=== PATIENT | male | born 1960 | race Caucasian/White ===

== ENCOUNTER 2016-09-11 15:17 | Inpatient (IN) | payer OTHER ==
[~2016-09-11] VITALS: Ht 177.8 cm; Wt 97.1 kg
[~2016-09-11 15:17] MED LIST: ACID CONTROL150 MG PO; DEPAKOTE ER500 MG PO; DEPAKOTE500 MG PO; DONNATAL1 TABLET PO; LEVOTHROID,S0.025 M1 PO; LEVOTHYROXINE75 MCG PO; LISINOPRIL40 MG PO; METFORMIN HCL500 MG PO; PRAVACHOL40 MG PO; PRINIVIL40 MG PO; SEROQUEL XR200 MG PO; SEROQUEL300 MG PO; TRILIPIX135 MG PO; ZOFRAN ODT4 MG PO; ZOLOFT100 MG PO; ZOLOFT25 MG PO
[2016-09-11 16:15] LABS: HEMATOCRIT 39.3 % (38.0-50.0); MCHC 33.6 G/DL (30.0-36.0); MCV 86.4 FL (86-99); MEAN PLAT.VOLUME 10.5 uM^3 (9.0-12.4); PLATELET COUNT 161 K/uL (156-360); RBC DIS.WIDTH-CV 12.8 % (11.8-14.6); RBC DIS.WIDTH-SD 40.2 % (39-53); RED BLOOD COUNT 4.55 M/uL (4.00-5.50); WHITE BLOOD COUNT 7.7 K/uL (4.1-10.2)
[2016-09-11 16:27] LABS: CHLORIDE 102 mEq/L (99-109); POTASSIUM 3.7 mEq/L (3.7-5.4); SODIUM 136 mEq/L (136-147)
[2016-09-11 16:30] LABS: ANION GAP 10 MEQ/L (2-14)
[2016-09-11 16:33] LABS: GFR ESTIMATE (CALCULATED) > 59 mL/min/
[2016-09-11 16:34] LABS: UREA NITROGEN (BUN) 7 mg/dL (9-23)
[2016-09-11 16:35] LABS: GLUCOSE 607 mg/dL (70-99)
[2016-09-11 16:37] LABS: CARBON DIOXIDE (BICARBONATE) 27.4 MEQ/L (20-31)
[2016-09-11 16:51] LABS: ADD MIUA? NO; BILIRUBIN NEGATIVE; BLOOD NEGATIVE; COLOR STRAW ((YELLOW)); GLUCOSE (STRIP) >=500; KETONES NEGATIVE; LEUKOCYTES NEGATIVE; NITRITE NEGATIVE; PROTEIN (STRIP) NEGATIVE; SPECIFIC GRAVITY 1.032 (1.000-1.030); UROBILINOGEN 0.2 MG/DL (0.2-1.0)
[2016-09-11 17:42] LABS: POINT-OF-CARE METER ID UU13113800
[2016-09-11 18:03] LABS: SERUM ETHYL ALCOHOL < 10 mg/dL
[2016-09-11 18:15] LABS: TROP-I INTERPRETATION NEGATIVE; TROPONIN-I < 0.01 ng/mL (0.0-0.30)
[2016-09-11 18:16] LABS: AMPHETAMINE NEGATIVE (500 ng/mL); BARBITURATES NEGATIVE (200 ng/mL); BENZODIAZEPINES NEGATIVE (150 ng/mL); COCAINE NEGATIVE (150 ng/mL); INTERNAL CONTROLS VALID? YES; METHADONE NEGATIVE (200 ng/mL); METHAMPHETAMINE NEGATIVE (500 ng/mL); OPIATES (MORPHINE) NEGATIVE (100 ng/mL); OXYCODONE NEGATIVE (100 ng/mL); PHENCYCLIDINE NEGATIVE (25 ng/mL); PROPOXYPHENE NEGATIVE (300 ng/mL); THC CANNABINOIDS NEGATIVE (50 ng/mL); TRICYCLIC ANTIDEPRESSANTS PRESUMPTIVE POSITIVE (300 ng/mL)
[2016-09-11 18:35] LABS: INFLUENZA A VIRAL ANTIGEN NEGATIVE; INFLUENZA B VIRAL ANTIGEN NEGATIVE
[2016-09-11 18:57] LABS: POINT-OF-CARE METER ID UU13113702
[2016-09-11 20:44] LABS: POINT-OF-CARE METER ID UU13113702
[2016-09-12 00:33] VITALS: BP 109/70
[2016-09-12 02:59] VITALS: BP 114/82
[2016-09-12 08:05] VITALS: BP 123/76
[2016-09-12 10:20] LABS: MCH 29.2 PG (29.0-34.0); MCHC 33.8 G/DL (30.0-36.0); MCV 86.6 FL (86-99); MEAN PLAT.VOLUME 10.1 uM^3 (9.0-12.4); PLATELET COUNT 146 K/uL (156-360); RBC DIS.WIDTH-CV 13.1 % (11.8-14.6); RBC DIS.WIDTH-SD 41.1 % (39-53); RED BLOOD COUNT 4.62 M/uL (4.00-5.50); WHITE BLOOD COUNT 5.8 K/uL (4.1-10.2)
[2016-09-12 10:53] LABS: ALKALINE PHOSPHATASE 41 IU/L (3-129); ANION GAP 5 MEQ/L (2-14); CHLORIDE 102 MEQ/L (99-109); GFR ESTIMATE (CALCULATED) > 59 mL/min/; GLUCOSE 297 mg/dL (70-99); SAMPLE HEMOLYSIS CHECK 0; SAMPLE ICTERIC CHECK 0; SAMPLE LIPEMIA CHECK 0; SODIUM 136 MEQ/L (136-147); TOTAL BILIRUBIN 0.5 MG/DL (0.0-1.0); UREA NITROGEN (BUN) 8 mg/dL (9-23)
[2016-09-12 11:02] VITALS: BP 147/98
[2016-09-12 12:19] LABS: Estimated Average Glucose 369 mg/dL (70-123); HEMOGLOBIN A1c (GLYCOHEMOGLOB) 14.5 % HGB (Below 5.7)
[2016-09-12 16:45] VITALS: BP 127/93
[2016-09-16 15:00] LABS: POINT-OF-CARE METER ID UU13113800
== END 2016-09-12 19:10 | disposition left against medical advice (07) | DRG 638 ==
LOC: EME 15:17 → 5WEST 22:23 → EDOF 22:23 → 5WEST 23:51
PROVIDERS: Hospitalist; Physician Assistant; Physician Assistant Medical
DX: E11.65 Type 2 diabetes mellitus with hyperglycemia (principal); E87.2 Acidosis; F05 Delirium due to known physiological condition; F31.30 Bipolar disorder, current episode depressed, mild or moderate severity, unspecified; Z91.128 Patient's intentional underdosing of medication regimen for other reason; E78.5 Hyperlipidemia, unspecified; G40.909 Epilepsy, unspecified, not intractable, without status epilepticus; E86.0 Dehydration; I10 Essential (primary) hypertension; K21.9 Gastro-esophageal reflux disease without esophagitis; J45.909 Unspecified asthma, uncomplicated; R32 Unspecified urinary incontinence; R35.0 Frequency of micturition; E78.00 Pure hypercholesterolemia, unspecified; R41.82 Altered mental status, unspecified; G47.9 Sleep disorder, unspecified; Z91.19 Patient's noncompliance with other medical treatment and regimen; Z88.0 Allergy status to penicillin; Z88.2 Allergy status to sulfonamides; Z56.0 Unemployment, unspecified
CPT/HCPCS: 70450; 71020; 80048; 80053; 81003; 82010; 82103 90; 82803; 82948; 83036; 83605; 84484; 85027; 87040; 87502; 87651 90; 93005; 99281; 99285; G0378; G0480; J1650; J1815; J3480; J7030; J7120

== ENCOUNTER 2016-09-20 17:55 | Emergency (ER) | payer OTHER ==
[~2016-09-20] VITALS: Ht 177.8 cm; Wt 93.3 kg
[2016-09-20 19:24] VITALS: BP 150/101
[2016-09-21] MEDS ORDERED: DEPAKOTE ER500 MG PO ×2 (12:03→12:06)
[2016-09-21] MEDS ORDERED: KLONOPIN0.5 M1 PO (12:03)
[2016-09-21] MEDS ORDERED: ZOLOFT100 MG PO ×2 (12:03→12:06)
== END 2016-09-20 19:25 | disposition home or self-care (01) ==
LOC: EME 17:55
DX: Z76.0 Encounter for issue of repeat prescription (principal)
CPT/HCPCS: 99281; 99283

== ENCOUNTER 2016-09-21 11:01 | Emergency (ER) | payer OTHER ==
[~2016-09-21] VITALS: Ht 177.8 cm; Wt 93.3 kg
[2016-09-21 11:03] VITALS: BP 135/111
[2016-09-21] MEDS ORDERED: KLONOPIN0.5 M1 PO (12:03)
[2016-09-21] MEDS ORDERED: ZOLOFT100 MG PO ×2 (12:03→12:06)
[2016-09-21] MEDS ORDERED: DEPAKOTE ER500 MG PO ×2 (12:03→12:06)
== END 2016-09-21 12:22 | disposition home or self-care (01) ==
LOC: EME 11:01
DX: F31.9 Bipolar disorder, unspecified (principal); Z76.0 Encounter for issue of repeat prescription
CPT/HCPCS: 90832; 99281; 99283

== ENCOUNTER 2017-01-10 14:15 | Inpatient (IN) | payer OTHER ==
[~2017-01-10] VITALS: Ht 180.3 cm; Wt 95.0 kg
[~2017-01-10 14:15] MED LIST changes: +KLONOPIN0.5 M1 PO
[2017-01-10 14:53] LABS: BASOPHIL COUNT 0.1 K/uL (0-0.1); EOSINOPHIL (%) 2.4 % (0-5); EOSINOPHIL COUNT 0.3 K/uL (0-0.3); HEMATOCRIT 41.4 % (38.0-50.0); IMMATURE GRANULOCYTE (%) 2.2 % (0.0-0.7); IMMATURE GRANULOCYTE COUNT 0.3 K/uL; INSTRUMENT ABS NEUTROPHIL CT 8.4 K/uL; MCH 28.9 PG (29.0-34.0); MCHC 33.3 G/DL (30.0-36.0); MCV 86.6 FL (86-99); MEAN PLAT.VOLUME 9.9 uM^3 (9.0-12.4); MONOCYTE (%) 8.2 % (3-12); NEUTROPHIL (%) 70.2 % (45-76); NEUTROPHIL COUNT 8.4 K/uL (1.8-6.4); PLATELET COUNT 199 K/uL (156-360); RBC DIS.WIDTH-CV 13.1 % (11.8-14.6); RBC DIS.WIDTH-SD 41.1 % (39-53); RED BLOOD COUNT 4.78 M/uL (4.00-5.50); WHITE BLOOD COUNT 11.9 K/uL (4.1-10.2)
[2017-01-10 15:01] LABS: CHLORIDE 106 mEq/L (99-109); POTASSIUM 4.5 mEq/L (3.7-5.4); SODIUM 138 mEq/L (136-147)
[2017-01-10 15:03] LABS: GLUCOSE 332 mg/dL (70-99)
[2017-01-10 15:04] LABS: ANION GAP 7 MEQ/L (2-14)
[2017-01-10 15:05] LABS: TOTAL BILIRUBIN 0.4 mg/dL (0.0-1.0)
[2017-01-10 15:07] LABS: GFR ESTIMATE (CALCULATED) > 59 mL/min/
[2017-01-10 15:08] LABS: ALKALINE PHOSPHATASE 47 IU/L (3-129)
[2017-01-10 15:09] LABS: UREA NITROGEN (BUN) 13 mg/dL (9-23)
[2017-01-10 15:10] LABS: SALICYLATE < 5.0 MG/DL (15-30)
[2017-01-10 15:13] LABS: TROP-I INTERPRETATION NEGATIVE; TROPONIN-I < 0.01 ng/mL (0.0-0.30)
[2017-01-10 15:38] LABS: ADD MIUA? NO; BILIRUBIN NEGATIVE; BLOOD NEGATIVE; COLOR YELLOW ((YELLOW)); GLUCOSE (STRIP) >=500; KETONES 5; LEUKOCYTES NEGATIVE; NITRITE NEGATIVE; PROTEIN (STRIP) 30; SPECIFIC GRAVITY 1.025 (1.000-1.030); UCUL ADDED? NO; UROBILINOGEN 0.2 MG/DL (0.2-1.0)
[2017-01-10 15:56] LABS: SAMPLE HEMOLYSIS CHECK 0; SAMPLE ICTERIC CHECK 0; SAMPLE LIPEMIA CHECK 0
[2017-01-10] MEDS ORDERED: PRAVACHOL40 MG PO (17:59)
[2017-01-10] MEDS ORDERED: DEPAKOTE ER500 MG PO (17:59)
[2017-01-10] MEDS ORDERED: CLONAZEPAM0.5 MG PO ×2 (17:59)
[2017-01-10] MEDS ORDERED: SERTRALINE HCL100 MG PO (17:59)
[2017-01-10] MEDS ORDERED: SEROQUEL XR400 MG PO (18:00)
[2017-01-10] MEDS ORDERED: SYNTHROID75 MCG PO (18:00)
[2017-01-10] MEDS ORDERED: BASAGLAR K100 UNIT/1 SC (18:00)
[2017-01-10] MEDS ORDERED: INVOKANA300 MG PO (18:00)
[2017-01-10] MEDS ORDERED: ZANTAC300 MG PO (18:00)
[2017-01-10] MEDS ORDERED: LISINOPRIL40 MG PO (18:00)
[2017-01-10 20:58] LABS: POINT-OF-CARE METER ID UU14100415
[2017-01-10 21:40] VITALS: BP 152/87
[2017-01-10 22:05] LABS: POINT-OF-CARE METER ID UU14188625
[2017-01-11] VITALS: BP 137/77
[2017-01-11 02:23] LABS: POINT-OF-CARE METER ID UU13113717
[2017-01-11 02:26] VITALS: BP 137/83
[2017-01-11 02:29] VITALS: BP 129/87; BP 160/81
[2017-01-11 08:49] LABS: HEMATOCRIT 39.2 % (38.0-50.0); MCH 28.7 PG (29.0-34.0); MCHC 32.9 G/DL (30.0-36.0); MCV 87.1 FL (86-99); MEAN PLAT.VOLUME 9.7 uM^3 (9.0-12.4); PLATELET COUNT 179 K/uL (156-360); RBC DIS.WIDTH-CV 13.1 % (11.8-14.6); RBC DIS.WIDTH-SD 41.5 % (39-53); WHITE BLOOD COUNT 8.2 K/uL (4.1-10.2)
[2017-01-11 09:11] LABS: ALKALINE PHOSPHATASE 34 IU/L (3-129); ANION GAP 2 MEQ/L (2-14); CHLORIDE 110 MEQ/L (99-109); GFR ESTIMATE (CALCULATED) > 59 mL/min/; POTASSIUM 4.1 MEQ/L (3.7-5.4); SAMPLE HEMOLYSIS CHECK 0; SAMPLE ICTERIC CHECK 0; SAMPLE LIPEMIA CHECK 0; SODIUM 144 MEQ/L (136-147); TOTAL BILIRUBIN 0.4 MG/DL (0.0-1.0); UREA NITROGEN (BUN) 8 mg/dL (9-23)
[2017-01-11 09:56] LABS: GLUCOSE 138 mg/dL (70-99)
[2017-01-11 11:10] VITALS: BP 128/81
[2017-01-11 12:12] LABS: POINT-OF-CARE METER ID UU13113717
[2017-01-11 14:37] LABS: AMPHETAMINES QUANT VALUE 0 NG/ML; BARBITUATES QUANT VALUE 0 NG/ML; BENZODIAZEPINES QUANT VALUE 0 NG/ML; BENZODIAZEPINES, URINE SCREEN Negative (200 ng/mL); MARIJUANA QUANT VALUE 0 NG/ML; OPIATES QUANTITATIVE VALUE 0 NG/ML; PHENCYCLIDINE QUANT VALUE 0 NG/ML
[2017-01-11 15:10] VITALS: BP 120/80
[2017-01-11 16:10] LABS: POINT-OF-CARE METER ID UU13113717
[2017-01-11 20:00] VITALS: BP 169/84
[2017-01-12] VITALS (12 sets, daily range): BP systolic 109–176; BP diastolic 65–103
[2017-01-12 06:18] LABS: HEMATOCRIT 40.4 % (38.0-50.0); MCH 29.8 PG (29.0-34.0); MCHC 34.2 G/DL (30.0-36.0); MCV 87.3 FL (86-99); MEAN PLAT.VOLUME 9.8 uM^3 (9.0-12.4); PLATELET COUNT 183 K/uL (156-360); RBC DIS.WIDTH-CV 13.2 % (11.8-14.6); RBC DIS.WIDTH-SD 41.3 % (39-53); RED BLOOD COUNT 4.63 M/uL (4.00-5.50); WHITE BLOOD COUNT 10.6 K/uL (4.1-10.2)
[2017-01-12 07:06] LABS: ANION GAP 5 MEQ/L (2-14); CHLORIDE 106 MEQ/L (99-109); GFR ESTIMATE (CALCULATED) > 59 mL/min/; GLUCOSE 112 mg/dL (70-99); POTASSIUM 3.6 MEQ/L (3.7-5.4); SAMPLE HEMOLYSIS CHECK 0; SAMPLE ICTERIC CHECK 0; SAMPLE LIPEMIA CHECK 0; SODIUM 143 MEQ/L (136-147); UREA NITROGEN (BUN) 8 mg/dL (9-23)
[2017-01-12 21:19] LABS: POINT-OF-CARE METER ID UU14174225
[2017-01-13 02:00] VITALS: BP 164/7; BP 164/70
[2017-01-13 07:10] LABS: HEMATOCRIT 42.2 % (38.0-50.0); MCH 28.5 PG (29.0-34.0); MCHC 32.9 G/DL (30.0-36.0); MCV 86.7 FL (86-99); RBC DIS.WIDTH-CV 13.1 % (11.8-14.6); RBC DIS.WIDTH-SD 40.8 % (39-53); RED BLOOD COUNT 4.87 M/uL (4.00-5.50); WHITE BLOOD COUNT 8.6 K/uL (4.1-10.2)
[2017-01-13 07:31] LABS: ANION GAP 9 MEQ/L (2-14); CHLORIDE 109 MEQ/L (99-109); POTASSIUM 3.8 MEQ/L (3.7-5.4); SAMPLE HEMOLYSIS CHECK 0; SAMPLE ICTERIC CHECK 0; SAMPLE LIPEMIA CHECK 0; SODIUM 144 MEQ/L (136-147)
[2017-01-13 07:37] LABS: GFR ESTIMATE (CALCULATED) > 59 mL/min/; UREA NITROGEN (BUN) 8 mg/dL (9-23)
[2017-01-13 07:38] LABS: GLUCOSE 64 mg/dL (70-99)
[2017-01-13 07:56] LABS: PLAT.SUFFICIENCY DECREASED
[2017-01-13 08:00] LABS: PLATELET COUNT UNABLE TO REPORT K/uL (156-360)
[2017-01-13 20:50] LABS: POINT-OF-CARE METER ID UU14174225
[2017-01-13 21:05] VITALS: BP 179/78
[2017-01-13 23:55] VITALS: BP 172/102
[2017-01-14 00:14] VITALS: BP 172/115; BP 173/104
[2017-01-14 08:00] VITALS: BP 136/93; BP 137/86; BP 144/94
[2017-01-14 15:05] VITALS: BP 156/92
[2017-01-14 16:31] LABS: POINT-OF-CARE METER ID UU13113717
[2017-01-14] MEDS ORDERED: TYLENOL EXTRA500 MG PO (19:01)
== END 2017-01-14 17:51 | DRG 885 ==
LOC: EME 14:15 → 5SOUTH 18:29 → EDOF 18:29 → ENRESERV 18:30 → 5SOUTH 20:56
PROVIDERS: Emergency Medicine; Internal Medicine; Physician Assistant Medical
DX: F31.9 Bipolar disorder, unspecified (principal); F20.9 Schizophrenia, unspecified; E11.65 Type 2 diabetes mellitus with hyperglycemia; F22 Delusional disorders; G40.909 Epilepsy, unspecified, not intractable, without status epilepticus; Z91.14 Patient's other noncompliance with medication regimen; I10 Essential (primary) hypertension; E78.5 Hyperlipidemia, unspecified; F17.200 Nicotine dependence, unspecified, uncomplicated; J45.909 Unspecified asthma, uncomplicated; K21.9 Gastro-esophageal reflux disease without esophagitis; Z79.4 Long term (current) use of insulin; Z79.899 Other long term (current) drug therapy; Z91.19 Patient's noncompliance with other medical treatment and regimen; Z68.29 Body mass index [BMI] 29.0-29.9, adult
CPT/HCPCS: 70450; 71010; 80048; 80053; 80164; 80306 90; 81003; 82948; 83605; 84443; 84484; 85025; 85027; 99281; 99285; G0480; J1644; J1815; J7030

== ENCOUNTER 2017-01-14 17:28 | Inpatient (IN) | payer OTHER ==
[~2017-01-14] VITALS: Ht 177.8 cm; Wt 94.8 kg
[~2017-01-14 17:28] MED LIST changes: +BASAGLAR K100 UNIT/1 SC; +CLONAZEPAM0.5 MG PO; +INVOKANA300 MG PO; +SEROQUEL XR400 MG PO; +SERTRALINE HCL100 MG PO; +SYNTHROID75 MCG PO; +ZANTAC300 MG PO
[2017-01-14 18:11] VITALS: BP 179/93
[2017-01-14] MEDS ORDERED: TYLENOL EXTRA500 MG PO (19:01)
[2017-01-14 20:59] VITALS: BP 168/97
[2017-01-15 06:27] LABS: POINT-OF-CARE METER ID UU14188576; POINT-OF-CARE USER ID ENVTLS63
[2017-01-15 08:34] VITALS: BP 95/57
[2017-01-15 11:49] LABS: POINT-OF-CARE METER ID UU14188576; POINT-OF-CARE USER ID BHSLRM
[2017-01-15 15:46] VITALS: BP 125/73
[2017-01-15 16:41] LABS: POINT-OF-CARE METER ID UU14188576; POINT-OF-CARE USER ID BHSMEW
[2017-01-15 20:29] LABS: POINT-OF-CARE METER ID UU14188576; POINT-OF-CARE USER ID ENVTLS63
[2017-01-16 06:16] LABS: POINT-OF-CARE METER ID UU14188576; POINT-OF-CARE USER ID ENVTLS63
[2017-01-16 08:14] VITALS: BP 93/54
[2017-01-16 10:42] LABS: POINT-OF-CARE METER ID UU14188576
[2017-01-16 15:30] VITALS: BP 118/90
[2017-01-16 16:53] LABS: POINT-OF-CARE METER ID UU14188576
[2017-01-16 21:42] LABS: POINT-OF-CARE METER ID UU14188576; POINT-OF-CARE USER ID BHSSMG
[2017-01-17 06:28] LABS: POINT-OF-CARE METER ID UU14188576
[2017-01-17 07:52] VITALS: BP 106/73
[2017-01-17 12:48] LABS: POINT-OF-CARE METER ID UU14188576; POINT-OF-CARE USER ID BHSTSA
[2017-01-17 16:22] VITALS: BP 121/74
[2017-01-17 16:48] LABS: POINT-OF-CARE METER ID UU14188576; POINT-OF-CARE USER ID BHSMEW
[2017-01-17 20:18] LABS: POINT-OF-CARE METER ID UU14188576; POINT-OF-CARE USER ID BHSMEW
[2017-01-18 06:33] LABS: POINT-OF-CARE METER ID UU14188576
[2017-01-18 09:04] VITALS: BP 103/63
[2017-01-18 11:37] LABS: POINT-OF-CARE METER ID UU14188576; POINT-OF-CARE USER ID BHSTSA
[2017-01-18 16:40] LABS: POINT-OF-CARE METER ID UU14188576; POINT-OF-CARE USER ID BHSMEW
[2017-01-18 16:51] VITALS: BP 121/58
[2017-01-18 20:47] LABS: POINT-OF-CARE METER ID UU14188576; POINT-OF-CARE USER ID BHSMEW
[2017-01-19 06:18] LABS: POINT-OF-CARE METER ID UU14188576; POINT-OF-CARE USER ID ENVTLS63
[2017-01-19 07:53] VITALS: BP 98/57
[2017-01-19 10:01] LABS: BASOPHIL COUNT 0.1 K/uL (0-0.1); EOSINOPHIL (%) 3.3 % (0-5); EOSINOPHIL COUNT 0.3 K/uL (0-0.3); HEMATOCRIT 43.4 % (38.0-50.0); IMMATURE GRANULOCYTE (%) 2.2 % (0.0-0.7); IMMATURE GRANULOCYTE COUNT 0.2 K/uL; INSTRUMENT ABS NEUTROPHIL CT 4.7 K/uL; LYMPHOCYTE COUNT 2.4 K/uL (1.0-2.8); MCH 30.3 PG (29.0-34.0); MCHC 34.6 G/DL (30.0-36.0); MCV 87.7 FL (86-99); MEAN PLAT.VOLUME 10.3 uM^3 (9.0-12.4); MONOCYTE COUNT 1.6 K/uL (0-0.8); NEUTROPHIL (%) 50.9 % (45-76); NEUTROPHIL COUNT 4.7 K/uL (1.8-6.4); RBC DIS.WIDTH-CV 13.4 % (11.8-14.6); RBC DIS.WIDTH-SD 42.7 % (39-53); RED BLOOD COUNT 4.95 M/uL (4.00-5.50); WHITE BLOOD COUNT 9.3 K/uL (4.1-10.2)
[2017-01-19 11:05] LABS: PLATELET COUNT 182 K/uL (156-360)
[2017-01-19 11:44] LABS: POINT-OF-CARE METER ID UU14188576; POINT-OF-CARE USER ID BHSLRM
[2017-01-19] MEDS ORDERED: DIVALPROEX SOD500 M1 PO (12:18)
== END 2017-01-19 13:32 | disposition home health service (06) | DRG 885 ==
LOC: 1WEST 17:28 → ENRESERV 17:29 → 1WEST 18:10
PROVIDERS: Psychiatry & Neurology Psychiatry
DX: F31.62 Bipolar disorder, current episode mixed, moderate (principal); G31.84 Mild cognitive impairment of uncertain or unknown etiology; E11.9 Type 2 diabetes mellitus without complications; I10 Essential (primary) hypertension; E78.5 Hyperlipidemia, unspecified; Z91.19 Patient's noncompliance with other medical treatment and regimen; Z79.4 Long term (current) use of insulin; Z88.0 Allergy status to penicillin; Z88.2 Allergy status to sulfonamides; Z88.5 Allergy status to narcotic agent
CPT/HCPCS: 80164; 82607; 82746; 82948; 85025; 97150 GO; 97165 GO; J1815

== ENCOUNTER 2017-01-27 13:53 | Inpatient (IN) | payer OTHER ==
[~2017-01-27] VITALS: Ht 177.8 cm; Wt 93.9 kg
[~2017-01-27 13:53] MED LIST changes: +DIVALPROEX SOD500 M1 PO; +TYLENOL EXTRA500 MG PO
[2017-01-27 14:19] LABS: POINT-OF-CARE METER ID UU14100415
[2017-01-27 14:36] LABS: BASOPHIL COUNT 0.1 K/uL (0-0.1); EOSINOPHIL (%) 1.9 % (0-5); EOSINOPHIL COUNT 0.3 K/uL (0-0.3); HEMATOCRIT 43.1 % (38.0-50.0); IMMATURE GRANULOCYTE (%) 0.7 % (0.0-0.7); IMMATURE GRANULOCYTE COUNT 0.1 K/uL; INSTRUMENT ABS NEUTROPHIL CT 10.3 K/uL; LYMPHOCYTE COUNT 1.9 K/uL (1.0-2.8); MCH 29.1 PG (29.0-34.0); MCHC 33.4 G/DL (30.0-36.0); MCV 87.1 FL (86-99); MEAN PLAT.VOLUME 10.2 uM^3 (9.0-12.4); MONOCYTE (%) 5.2 % (3-12); MONOCYTE COUNT 0.7 K/uL (0-0.8); NEUTROPHIL (%) 77.5 % (45-76); NEUTROPHIL COUNT 10.3 K/uL (1.8-6.4); PLATELET COUNT 139 K/uL (156-360); RBC DIS.WIDTH-CV 13.3 % (11.8-14.6); RBC DIS.WIDTH-SD 42.5 % (39-53); RED BLOOD COUNT 4.95 M/uL (4.00-5.50); WHITE BLOOD COUNT 13.4 K/uL (4.1-10.2)
[2017-01-27 14:41] LABS: INTER. NORMALIZED RATIO 1.1; PROTHROMBIN TIME 11.8 SEC (10.2-12.9)
[2017-01-27 14:47] LABS: CHLORIDE 105 mEq/L (99-109); POTASSIUM 4.6 mEq/L (3.7-5.4); SODIUM 141 mEq/L (136-147)
[2017-01-27 14:49] LABS: GLUCOSE 130 mg/dL (70-99)
[2017-01-27 14:50] LABS: ANION GAP 11 MEQ/L (2-14)
[2017-01-27 14:51] LABS: TOTAL BILIRUBIN 0.6 mg/dL (0.0-1.0)
[2017-01-27 14:52] LABS: SERUM ETHYL ALCOHOL < 10 mg/dL
[2017-01-27 14:53] LABS: GFR ESTIMATE (CALCULATED) > 59 mL/min/
[2017-01-27 14:54] LABS: ALKALINE PHOSPHATASE 48 IU/L (3-129)
[2017-01-27 14:55] LABS: UREA NITROGEN (BUN) 21 mg/dL (9-23)
[2017-01-27 14:56] LABS: SALICYLATE < 5.0 MG/DL (15-30)
[2017-01-27 14:58] LABS: LIPASE 33 U/L (1.0-51.0)
[2017-01-27 15:03] LABS: TROP-I INTERPRETATION NEGATIVE; TROPONIN-I < 0.01 ng/mL (0.0-0.30)
[2017-01-27 15:59] LABS: ADD MIUA? YES; BILIRUBIN NEGATIVE; BLOOD NEGATIVE; COLOR YELLOW ((YELLOW)); GLUCOSE (STRIP) >=500; KETONES NEGATIVE; LEUKOCYTES NEGATIVE; NITRITE NEGATIVE; PROTEIN (STRIP) NEGATIVE; SPECIFIC GRAVITY 1.024 (1.000-1.030); UROBILINOGEN 0.2 MG/DL (0.2-1.0)
[2017-01-27 16:10] LABS: BACTERIA NONE SEEN /HPF; EPITHELIAL CELLS NONE SEEN /HPF; MUCUS NONE SEEN /LPF; RED BLOOD CELLS 0-5 /HPF (0-5); UCUL ADDED? NO; WHITE BLOOD CELLS 0-5 /HPF (0-5)
[2017-01-27 16:25] LABS: AMPHETAMINE NEGATIVE (500 ng/mL); BARBITURATES NEGATIVE (200 ng/mL); BENZODIAZEPINES NEGATIVE (150 ng/mL); COCAINE NEGATIVE (150 ng/mL); INTERNAL CONTROLS VALID? YES; METHADONE NEGATIVE (200 ng/mL); METHAMPHETAMINE NEGATIVE (500 ng/mL); OPIATES (MORPHINE) NEGATIVE (100 ng/mL); OXYCODONE NEGATIVE (100 ng/mL); PHENCYCLIDINE NEGATIVE (25 ng/mL); PROPOXYPHENE NEGATIVE (300 ng/mL); THC CANNABINOIDS NEGATIVE (50 ng/mL); TRICYCLIC ANTIDEPRESSANTS PRESUMPTIVE POSITIVE (300 ng/mL)
[2017-01-27 20:06] VITALS: BP 115/78
[2017-01-28] VITALS (7 sets, daily range): BP systolic 101–117; BP diastolic 63–78
[2017-01-28] MEDS ORDERED: CLONAZEPAM0.5 MG PO (04:27)
[2017-01-28] MEDS ORDERED: CLONAZEPAM1 MG PO (04:27)
[2017-01-28] MEDS ORDERED: SERTRALINE HCL100 MG PO (04:28)
[2017-01-28] MEDS ORDERED: INVOKANA300 MG PO (04:29)
[2017-01-28] MEDS ORDERED: QUETIAPINE FUM400 M1 PO (04:30)
[2017-01-28] MEDS ORDERED: DEPAKOTE ER500 MG PO (04:32)
[2017-01-28] MEDS ORDERED: PRAVACHOL40 MG PO (04:33)
[2017-01-28] MEDS ORDERED: BASAGLAR K100 UNIT/1 SC (04:35)
[2017-01-28 06:11] LABS: HEMATOCRIT 42.8 % (38.0-50.0); MCH 28.9 PG (29.0-34.0); MCHC 32.5 G/DL (30.0-36.0); MEAN PLAT.VOLUME 10.6 uM^3 (9.0-12.4); PLATELET COUNT 137 K/uL (156-360); RBC DIS.WIDTH-CV 13.5 % (11.8-14.6); RBC DIS.WIDTH-SD 44.2 % (39-53); RED BLOOD COUNT 4.81 M/uL (4.00-5.50); WHITE BLOOD COUNT 9.9 K/uL (4.1-10.2)
[2017-01-28 06:50] LABS: ANION GAP 7 MEQ/L (2-14); CHLORIDE 108 MEQ/L (99-109); GFR ESTIMATE (CALCULATED) > 59 mL/min/; POTASSIUM 4.2 MEQ/L (3.7-5.4); SAMPLE HEMOLYSIS CHECK 0; SAMPLE ICTERIC CHECK 0; SAMPLE LIPEMIA CHECK 0; SODIUM 144 MEQ/L (136-147); UREA NITROGEN (BUN) 16 mg/dL (9-23)
[2017-01-28 06:53] LABS: GLUCOSE 72 mg/dL (70-99)
[2017-01-29 04:27] VITALS: BP 113/72
[2017-01-29 04:50] LABS: HEMATOCRIT 38.3 % (38.0-50.0); MCH 29.3 PG (29.0-34.0); MCHC 33.2 G/DL (30.0-36.0); MCV 88.2 FL (86-99); MEAN PLAT.VOLUME 10.2 uM^3 (9.0-12.4); PLATELET COUNT 121 K/uL (156-360); RBC DIS.WIDTH-CV 13.4 % (11.8-14.6); RBC DIS.WIDTH-SD 43.6 % (39-53); RED BLOOD COUNT 4.34 M/uL (4.00-5.50); WHITE BLOOD COUNT 7.4 K/uL (4.1-10.2)
[2017-01-29 05:10] LABS: CHLORIDE 108 mEq/L (99-109); POTASSIUM 3.7 mEq/L (3.7-5.4); SODIUM 142 mEq/L (136-147)
[2017-01-29 05:13] LABS: ANION GAP 7 MEQ/L (2-14)
[2017-01-29 05:15] LABS: GFR ESTIMATE (CALCULATED) > 59 mL/min/; GLUCOSE 119 mg/dL (70-99)
[2017-01-29 05:16] LABS: UREA NITROGEN (BUN) 15 mg/dL (9-23)
[2017-01-29 08:40] VITALS: BP 119/80
[2017-01-29 12:43] VITALS: BP 129/84
[2017-01-29 17:36] VITALS: BP 134/65
[2017-01-29 20:10] VITALS: BP 170/84
[2017-01-30 00:08] VITALS: BP 139/97
[2017-01-30 04:19] VITALS: BP 132/82
[2017-01-30 07:46] VITALS: BP 141/91
[2017-01-30] MEDS ORDERED: NICOTINE PATCH1 EAC1 TD (10:35)
[2017-01-30] MEDS ORDERED: DIVALPROEX SOD500 M1 PO (10:36)
[2017-01-30] MEDS ORDERED: LEVETIRACETAM500 MG PO (10:36)
[2017-01-30 12:14] VITALS: BP 168/94
[2017-01-30 15:43] VITALS: BP 153/89
== END 2017-01-30 15:54 | disposition home health service (06) | DRG 918 ==
LOC: EME 13:53 → EDOF 17:53 → 4EAST 17:53 → ENRESERV 17:54 → 4EAST 19:33
PROVIDERS: Emergency Medicine; Hospitalist; Physician Assistant; Psychiatry & Neurology Psychiatry
DX: T42.6X1A Poisoning by other antiepileptic and sedative-hypnotic drugs, accidental (unintentional), initial encounter (principal); R41.82 Altered mental status, unspecified; I95.9 Hypotension, unspecified; G40.919 Epilepsy, unspecified, intractable, without status epilepticus; F17.210 Nicotine dependence, cigarettes, uncomplicated; F31.76 Bipolar disorder, in full remission, most recent episode depressed; E11.9 Type 2 diabetes mellitus without complications; E78.5 Hyperlipidemia, unspecified; I10 Essential (primary) hypertension; K21.9 Gastro-esophageal reflux disease without esophagitis; Z79.899 Other long term (current) drug therapy; E87.2 Acidosis
CPT/HCPCS: 70450; 71010; 80048; 80053; 80164; 80185; 81003; 82140; 82948; 83605; 83690; 84484; 85025; 85027; 85610; 85730; 87040; 93005; 99281; 99285; G0480; J1650; J1955; J1956; J2310; J3370; J7030

== ENCOUNTER 2017-08-12 21:14 | Inpatient (IN) | payer OTHER ==
[~2017-08-12] VITALS: Ht 180.3 cm; Wt 98.1 kg
[~2017-08-12 21:14] MED LIST changes: +CLONAZEPAM1 MG PO; +LEVETIRACETAM500 MG PO; +NICOTINE PATCH1 EAC1 TD; +QUETIAPINE FUM400 M1 PO
[2017-08-12 22:00] LABS: BASOPHIL (%) 0.8 % (0-1); BASOPHIL COUNT 0.1 K/uL (0-0.1); EOSINOPHIL COUNT 0.3 K/uL (0-0.3); HEMATOCRIT 42.5 % (38.0-50.0); HEMOGLOBIN 15.1 G/DL (12.5-16.6); IMMATURE GRANULOCYTE (%) 0.9 % (0.0-0.7); LYMPHOCYTE (%) 21.4 % (15-42); LYMPHOCYTE COUNT 2.4 K/uL (1.0-2.8); MCHC 35.5 G/DL (30.0-36.0); MCV 81.6 FL (86-99); MONOCYTE (%) 10.8 % (3-12); MONOCYTE COUNT 1.2 K/uL (0-0.8); NEUTROPHIL (%) 63.1 % (45-76); PLATELET COUNT 243 K/uL (156-360); RBC DIS.WIDTH-SD 37.9 % (39-53); RED BLOOD COUNT 5.21 M/uL (4.00-5.50)
[2017-08-12 22:09] LABS: ALBUMIN 3.8 g/dL (3.2-4.8); CHLORIDE 105 mEq/L (99-109); POTASSIUM 3.7 mEq/L (3.7-5.4); SODIUM 137 mEq/L (136-147)
[2017-08-12 22:12] LABS: GLUCOSE 339 mg/dL (70-99); TOTAL PROTEIN 7.4 g/dL (6.4-8.3)
[2017-08-12 22:13] LABS: TOTAL BILIRUBIN 0.5 mg/dL (0.0-1.0)
[2017-08-12 22:15] LABS: ALKALINE PHOSPHATASE 69 IU/L (3-129); GFR ESTIMATE (CALCULATED) > 59 mL/min/ (58.99-99999)
[2017-08-12 22:16] LABS: UREA NITROGEN (BUN) 13 mg/dL (9-23)
[2017-08-12 22:17] LABS: AST (GOT) 15 IU/L (2-34)
[2017-08-12 22:18] LABS: ALT (GPT) 12 IU/L (3-49)
[2017-08-12 22:19] LABS: LIPASE 56 U/L (1.0-51.0)
[2017-08-12 22:21] LABS: TROP-I INTERPRETATION NEGATIVE; TROPONIN-I < 0.01 ng/mL (0.0-0.30)
[2017-08-13 00:51] LABS: AMPHETAMINE NEGATIVE (500 ng/mL); BARBITURATES NEGATIVE (200 ng/mL); BENZODIAZEPINES NEGATIVE (150 ng/mL); BUPRENORPHINE NEGATIVE (10 ng/mL); COCAINE NEGATIVE (150 ng/mL); METHADONE NEGATIVE (200 ng/mL); METHAMPHETAMINE NEGATIVE (500 ng/mL); OPIATES (MORPHINE) NEGATIVE (100 ng/mL); OXYCODONE NEGATIVE (100 ng/mL); PHENCYCLIDINE NEGATIVE (25 ng/mL); PROPOXYPHENE NEGATIVE (300 ng/mL); THC CANNABINOIDS NEGATIVE (50 ng/mL); TRICYCLIC ANTIDEPRESSANTS NEGATIVE (300 ng/mL)
[2017-08-13 01:09] LABS: SERUM ETHYL ALCOHOL < 10 mg/dL
[2017-08-13 01:38] LABS: VALPROIC ACID (DEPAKOTE) < 10.0 MCG/ML (50-100)
[2017-08-13 04:22] VITALS: BP 175/101
[2017-08-13 06:15] VITALS: BP 156/89
[2017-08-13 08:04] VITALS: BP 159/89
[2017-08-13 15:53] VITALS: BP 140/75
[2017-08-14 07:55] VITALS: BP 117/67
[2017-08-14 15:41] VITALS: BP 141/79
[2017-08-15 07:55] VITALS: BP 114/65
[2017-08-15 15:33] VITALS: BP 123/70
[2017-08-16 07:41] VITALS: BP 117/72
[2017-08-16 15:31] VITALS: BP 129/82
[2017-08-17 08:10] VITALS: BP 108/63
[2017-08-17 16:18] VITALS: BP 125/77
[2017-08-18 07:23] VITALS: BP 121/73
[2017-08-18 15:12] VITALS: BP 145/87
[2017-08-19 07:59] VITALS: BP 153/86
[2017-08-20 07:58] VITALS: BP 117/75
[2017-08-20] MEDS ORDERED: SERTRALINE HCL100 MG PO (09:56)
[2017-08-20] MEDS ORDERED: QUETIAPINE FUM400 M1 PO (09:56)
[2017-08-20] MEDS ORDERED: PRAVACHOL40 MG PO (09:56)
[2017-08-20] MEDS ORDERED: CLONAZEPAM1 MG PO (09:56)
[2017-08-20] MEDS ORDERED: BASAGLAR K100 UNIT/1 SC (09:56)
[2017-08-20] MEDS ORDERED: LEVETIRACETAM500 MG PO (09:56)
[2017-08-20] MEDS ORDERED: DIVALPROEX SOD500 M1 PO (09:56)
[2017-08-20] MEDS ORDERED: HYDROXYZINE PAM25 MG PO (09:56)
[2017-08-20] MEDS ORDERED: NICOTINE PATCH1 EAC1 TD (09:56)
[2017-08-20] MEDS ORDERED: QUETIAPINE FUM100 MG PO (09:56)
== END 2017-08-20 12:24 | disposition home or self-care (01) | DRG 885 ==
LOC: EME 21:14 → 1WEST 08-13 01:55 → EDOF 08-13 01:55 → ENRESERV 08-13 03:26 → 1WEST 08-13 04:07
PROVIDERS: Emergency Medicine; Psychiatry & Neurology Psychiatry
DX: F25.0 Schizoaffective disorder, bipolar type (principal); G40.909 Epilepsy, unspecified, not intractable, without status epilepticus; E11.65 Type 2 diabetes mellitus with hyperglycemia; I10 Essential (primary) hypertension; F41.9 Anxiety disorder, unspecified; E78.5 Hyperlipidemia, unspecified; K21.9 Gastro-esophageal reflux disease without esophagitis; J45.909 Unspecified asthma, uncomplicated; Z91.19 Patient's noncompliance with other medical treatment and regimen; Z86.73 Personal history of transient ischemic attack (TIA), and cerebral infarction without residual deficits; Z87.891 Personal history of nicotine dependence
CPT/HCPCS: 71045; 80053; 80164; 82948; 83036; 83690; 84484; 85025; 90837; 93005; 97150 GO; 97166 GO; 99281; 99285; G0480; J1815; J2405; J7030

== ENCOUNTER 2017-10-04 19:10 | Emergency (ER) | payer OTHER ==
[~2017-10-04] VITALS: Ht 167.6 cm; Wt 103.0 kg
[~2017-10-04 19:10] MED LIST changes: +HYDROXYZINE PAM25 MG PO; +QUETIAPINE FUM100 MG PO
[2017-10-04 19:57] LABS: HEMATOCRIT 40.8 % (38.0-50.0); HEMOGLOBIN 14.4 G/DL (12.5-16.6); MCH 28.9 PG (29.0-34.0); MCHC 35.3 G/DL (30.0-36.0); MCV 81.9 FL (86-99); PLATELET COUNT 220 K/uL (156-360); RBC DIS.WIDTH-CV 13.5 % (11.8-14.6); RED BLOOD COUNT 4.98 M/uL (4.00-5.50); WHITE BLOOD COUNT 7.9 K/uL (4.1-10.2)
[2017-10-04 20:21] LABS: CHLORIDE 104 MEQ/L (99-109); CREATININE 0.7 MG/DL (0.6-1.3); GFR ESTIMATE (CALCULATED) > 59 mL/min/ (58.99-99999); GLUCOSE 118 mg/dL (70-99); SODIUM 141 MEQ/L (136-147); UREA NITROGEN (BUN) 6 mg/dL (9-23)
[2017-10-04 20:24] LABS: TROP-I INTERPRETATION NEGATIVE; TROPONIN-I < 0.01 ng/mL (0.0-0.30)
[2017-10-05 00:16] VITALS: BP 163/96
== END 2017-10-05 00:27 | disposition home or self-care (01) ==
LOC: EME 19:10
PROVIDERS: Emergency Medicine
DX: R07.9 Chest pain, unspecified (principal); S09.90XA Unspecified injury of head, initial encounter; M94.0 Chondrocostal junction syndrome [Tietze]; E86.0 Dehydration; W01.0XXA Fall on same level from slipping, tripping and stumbling without subsequent striking against object, initial encounter; E78.5 Hyperlipidemia, unspecified; I10 Essential (primary) hypertension; J45.909 Unspecified asthma, uncomplicated; F32.9 Major depressive disorder, single episode, unspecified; K21.9 Gastro-esophageal reflux disease without esophagitis; F41.9 Anxiety disorder, unspecified; Z86.73 Personal history of transient ischemic attack (TIA), and cerebral infarction without residual deficits; Z88.5 Allergy status to narcotic agent; Z88.2 Allergy status to sulfonamides; Z88.0 Allergy status to penicillin; Z87.891 Personal history of nicotine dependence
CPT/HCPCS: 70450; 71046; 80048; 84484; 85027; 93005; 99281; 99284; J7030

== ENCOUNTER 2017-11-08 01:51 | Emergency (ER) | payer OTHER ==
[~2017-11-08] VITALS: Ht 180.3 cm; Wt 97.7 kg
[2017-11-08 02:33] LABS: BASOPHIL (%) 0.7 % (0-1); BASOPHIL COUNT 0.1 K/uL (0-0.1); EOSINOPHIL COUNT 0.8 K/uL (0-0.3); HEMATOCRIT 43.4 % (38.0-50.0); HEMOGLOBIN 15.1 G/DL (12.5-16.6); LYMPHOCYTE (%) 15.5 % (15-42); LYMPHOCYTE COUNT 2.2 K/uL (1.0-2.8); MCHC 34.8 G/DL (30.0-36.0); MCV 83.5 FL (86-99); MONOCYTE COUNT 1.5 K/uL (0-0.8); NEUTROPHIL (%) 65.8 % (45-76); NEUTROPHIL COUNT 9.1 K/uL (1.8-6.4); PLATELET COUNT 200 K/uL (156-360); RBC DIS.WIDTH-CV 13.9 % (11.8-14.6); RBC DIS.WIDTH-SD 42.3 % (39-53); WHITE BLOOD COUNT 13.9 K/uL (4.1-10.2)
[2017-11-08 02:48] LABS: AMYLASE 44 IU/L (1-118); CHLORIDE 107 mEq/L (99-109); POTASSIUM 3.4 mEq/L (3.7-5.4); SODIUM 145 mEq/L (136-147)
[2017-11-08 02:50] LABS: GLUCOSE 160 mg/dL (70-99)
[2017-11-08 02:53] LABS: SERUM ETHYL ALCOHOL < 10 mg/dL
[2017-11-08 02:54] LABS: GFR ESTIMATE (CALCULATED) > 59 mL/min/ (58.99-99999)
[2017-11-08 02:55] LABS: UREA NITROGEN (BUN) 13 mg/dL (9-23)
[2017-11-08 02:57] LABS: LIPASE 21 U/L (1.0-51.0)
[2017-11-08 03:02] LABS: TROP-I INTERPRETATION NEGATIVE; TROPONIN-I < 0.01 ng/mL (0.0-0.30)
[2017-11-08 06:16] LABS: APPEARANCE CLEAR ((CLEAR)); BILIRUBIN NEGATIVE; BLOOD NEGATIVE; COLOR YELLOW ((YELLOW)); GLUCOSE (STRIP) NEGATIVE; KETONES NEGATIVE; LEUKOCYTES NEGATIVE; NITRITE NEGATIVE; PROTEIN (STRIP) NEGATIVE; SPECIFIC GRAVITY 1.041 (1.000-1.030); UCUL ADDED? NO; UROBILINOGEN 0.2 MG/DL (0.2-1.0)
[2017-11-08 06:27] LABS: AMPHETAMINE NEGATIVE (500 ng/mL); BARBITURATES NEGATIVE (200 ng/mL); BENZODIAZEPINES NEGATIVE (150 ng/mL); BUPRENORPHINE NEGATIVE (10 ng/mL); COCAINE NEGATIVE (150 ng/mL); METHADONE NEGATIVE (200 ng/mL); METHAMPHETAMINE NEGATIVE (500 ng/mL); OPIATES (MORPHINE) NEGATIVE (100 ng/mL); OXYCODONE NEGATIVE (100 ng/mL); PHENCYCLIDINE NEGATIVE (25 ng/mL); PROPOXYPHENE NEGATIVE (300 ng/mL); THC CANNABINOIDS NEGATIVE (50 ng/mL); TRICYCLIC ANTIDEPRESSANTS PRESUMPTIVE POSITIVE (300 ng/mL)
[2017-11-08 07:30] VITALS: BP 161/100
== END 2017-11-08 08:20 ==
LOC: EME 01:51
PROVIDERS: Emergency Medicine
DX: S06.9X1A Unspecified intracranial injury with loss of consciousness of 30 minutes or less, initial encounter (principal); S43.401A Unspecified sprain of right shoulder joint, initial encounter; W10.9XXA Fall (on) (from) unspecified stairs and steps, initial encounter; E86.0 Dehydration; I45.10 Unspecified right bundle-branch block; R94.31 Abnormal electrocardiogram [ECG] [EKG]; E11.9 Type 2 diabetes mellitus without complications; Z79.4 Long term (current) use of insulin; I10 Essential (primary) hypertension; E78.5 Hyperlipidemia, unspecified; K21.9 Gastro-esophageal reflux disease without esophagitis; J45.909 Unspecified asthma, uncomplicated; R56.9 Unspecified convulsions; F31.9 Bipolar disorder, unspecified; F41.9 Anxiety disorder, unspecified; F32.9 Major depressive disorder, single episode, unspecified; Z87.891 Personal history of nicotine dependence; Z86.73 Personal history of transient ischemic attack (TIA), and cerebral infarction without residual deficits; Z90.49 Acquired absence of other specified parts of digestive tract; Z88.5 Allergy status to narcotic agent; Z88.2 Allergy status to sulfonamides; Z88.0 Allergy status to penicillin; Z91.012 Allergy to eggs; Z88.8 Allergy status to other drugs, medicaments and biological substances
CPT/HCPCS: 70450; 71260; 72125; 73030; 74177; 80048; 81003; 82150; 83690; 84484; 85025; 86850; 86900; 86901; 93005; 99281; 99284; G0480; J3010; J7030